=== PATIENT | female | born 1965 | race Caucasian/White ===

== ENCOUNTER → 2025-02-06 | Outpatient (CLI) | payer OTHER, SELFPAY | END | disposition home or self-care (01) | LOC: PSN 12:49 | PROVIDERS: PCP Family Medicine; Referring Provider Internal Medicine Critical Care Medicine; Visit Provider Internal Medicine Critical Care Medicine | DX: F17.211 Nicotine dependence, cigarettes, in remission (principal); R06.09 Other forms of dyspnea | CPT/HCPCS: 94060; 94726; 94729 ==

== ENCOUNTER → 2025-02-08 | Outpatient (CLI) | payer OTHER, SELFPAY ==
--- NOTE | 2025-02-08 12:46 | CT_ITS ---
PROCEDURE: LOW DOSE CT LUNG SCREENING 02/08/2025 REASON FOR EXAM: H/O TOBACCO DEPENDENCY 45+ pack-year history of smoking, quit in 2023 TECHNIQUE: Procedure Code: [id number] Modality: CT Procedure: LOW DOSE CT LUNG SCREENING Coronal and Sagittal reconstruction series were provided. One or more dose reduction techniques were used (e.g., Automated exposure control, adjustment of the mA and/or kV according to patient size, use of iterative reconstruction technique). REFERENCE LINK: [facility] Lung-RADS RADIATION DOSE SUMMARY: CTDlvol: 4.02 mGy DLP: 129.89 mGycm COMPARISON: None FINDINGS: Lung windows show underlying emphysema with chronic interstitial changes including nonspecific pleural thickening in both hemithoraces. There is evidence of chronic bronchitis but no organized infiltrate, or effusion, no suspicious noncalcified mass or nodule. Limited soft tissue windows show a normal-appearing thyroid gland. No suspicious axillary mediastinal or perihilar adenopathy. Peripheral calcifications noted in the thoracic aorta without aneurysm. Calcified coronary vessels. Limited cuts through the upper abdomen do not show a suspicious abnormality. There is a prominent retrocardiac hiatal hernia. Bony structures show degenerative change CT/Low Dose CT Lung Screening IMPRESSION: Underlying emphysema with chronic interstitial changes, no superimposed process , no suspicious noncalcified mass or nodule Coronary artery calcification (CAC) is is present Lung-RADS Category: 2 BENIGN (BASED ON IMAGING FEATURES OR INDOLENT BEHAVIOR). RECOMMEND 12-MONTH SCREENING LDCT. Other Significant Findings: Reading Location: [id number]
[2025-02-08 13:38] VITALS: PULSE 102; PULSE 108; PULSE 112; PULSE 117; PULSE 120; PULSE 122; PULSE 124; PULSE 130; O2SAT 94; O2SAT 95; O2SAT 96
--- NOTE | 2025-02-08 13:42 | CPS ---
PATIENT TOOK 2 EXTENDED REST BREAKS DURING WALK TEST FOR INCREASED WOB AND LEG AND BACK PAIN, WHICH SHE SAYS ARE AGGRAVATED WITH EXERCISE SO SHE DOESN'T WALK MUCH ON A DAY TO DAY BASIS. TESTING WAS DONE ENTIRELY ON ROOM AIR. PATIENT WALKED A TOTAL OF 472FT.
--- NOTE | 2025-02-09 10:32 | PCM.PSN.6M ---
PSN 6 Minute Walk Test 6 Minute Walk Test 6 Minute Walk Test: 6 Minute Walk Test PSN:6-Minute Walk Test Start: 02/08/25 13:37 Freq: Status: Active Protocol: [id number] Document 02/08/25 13:38 [facility] (Rec: 02/08/25 13:46 [facility] [id number]) 6 Minute Walk Test Date Performed 02/08/25 Time Performed 13:00 Height 5 ft 2 in Weight: 210 lb Weight in Pounds 210.[address]: Jose Antonio Avalos Assistive device None used: Pre-test Oxygen Delivery Room Air Method Pulse Ox (%) 95 Pulse Rate (60-100 102 H beats/min) Dyspnea Jourdan Scale ( 2 0-10) Exertion Jourdan Scale 10 (6-20) Reported Symptoms Increased Work of Breathing 1st minute Oxygen Delivery Room Air Method Pulse Ox (%) 94 Pulse Rate (60-100 120 H beats/min) Dyspnea Jourdan Scale ( 3 0-10) Number of Rests 0 Taken Reported Symptoms Increased Work of Breathing 2nd minute Oxygen Delivery Room Air Method Pulse Ox (%) 95 Pulse Rate (60-100 130 H beats/min) Dyspnea Jourdan Scale ( 4 0-10) Number of Rests 1 Taken Reported Symptoms Increased Work of Breathing 3rd minute Oxygen Delivery Room Air Method Pulse Ox (%) 95 Pulse Rate (60-100 117 H beats/min) Dyspnea Jourdan Scale ( 5 0-10) Number of Rests 1 Taken Reported Symptoms Increased Work of Breathing 4th minute Oxygen Delivery Room Air Method Pulse Ox (%) 94 Pulse Rate (60-100 124 H beats/min) Dyspnea Jourdan Scale ( 5 0-10) Number of Rests 0 Taken Reported Symptoms Increased Work of Breathing 5th minute Oxygen Delivery Room Air Method Pulse Ox (%) 94 Pulse Rate (60-100 122 H beats/min) Dyspnea Jourdan Scale ( 5 0-10) Exertion Jourdan Scale 14 (6-20) Number of Rests 1 Taken Reported Symptoms Increased Work of Breathing 6th minute Oxygen Delivery Room Air Method Pulse Ox (%) 95 Pulse Rate (60-100 112 H beats/min) Dyspnea Jourdan Scale ( 5 0-10) Number of Rests 1 Taken Reported Symptoms Increased Work of Breathing Post-test Oxygen Delivery Room Air Method Pulse Ox (%) 96 Pulse Rate (60-100 108 H beats/min) Dyspnea Jourdan Scale ( 3 0-10) Reported Symptoms Increased Work of Breathing Full Laps Walked 8 Partial Lap, Number 0 of Tiles Walked Total Distance 472 Walked (ft) 02/08/25 13:42 Cardiopulmonary Services by Rita Hagan PATIENT TOOK 2 EXTENDED REST BREAKS DURING WALK TEST FOR INCREASED WOB AND LEG AND BACK PAIN, WHICH SHE SAYS ARE AGGRAVATED WITH EXERCISE SO SHE DOESN'T WALK MUCH ON A DAY TO DAY BASIS. TESTING WAS DONE ENTIRELY ON ROOM AIR. PATIENT WALKED A TOTAL OF 472FT. Initialized on 02/08/25 13:42 - END OF NOTE Interpretation Interpretation: The patient ambulated 472 feet over the course of 6 minutes beginning on room air without assistive devices. Pretesting oxygen saturation was noted to be 95% on room air. With ambulation, the chelsi oxygen saturation was 94%. Although there was evidence of impaired walk distance, there was no significant exertional oxygen desaturation. Recommendations Recommendations: There is no indication for the use of supplemental oxygen at this time.
== END | disposition home or self-care (01) ==
LOC: PSN 12:44
PROVIDERS: PCP Family Medicine; Referring Provider Internal Medicine Critical Care Medicine; Visit Provider Internal Medicine Critical Care Medicine
DX: Z12.2 Encounter for screening for malignant neoplasm of respiratory organs (principal); F17.211 Nicotine dependence, cigarettes, in remission; R06.09 Other forms of dyspnea
CPT/HCPCS: 71271; 94618